=== PATIENT | female | born 1965 | race Caucasian/White ===

== ENCOUNTER 2016-09-16 00:26 | Emergency (ER) | payer OTHER ==
[2016-09-16 00:46] VITALS: BP 118/73
[2016-09-16] MEDS ORDERED: NS 0.9% 1000 ML* 2,000 ML IV ONE (01:07)
[2016-09-16 01:57] LABS: Urine Bacteria Absent (Absent); Urine Bilirubin Negative (Negative); Urine Glucose Negative (Negative); Urine Nitrite Negative (Negative)
--- NOTE | 2016-09-16 02:01 | ED ---
Dalton Carney Adam, scribed for Erich Solis MD on 09/16/16 at 0104 . Back Pain - HPI Summary HPI Summary: Pt is a 51 year old female presenting with left flank pain. It set on at 21:30 and has been constant since then but fluctuating in severity. It radiates to the LLQ. She also reports nausea and diaphoresis. Pt states that the pain resolved upon arrival at the ED so she almost went home but then it returned again. She states that she has vomited 7x since arriving at the ED. At this time the flank pain is mostly resolved. Pt denies any dysuria. Surgical Hx of C- section and partial hysterectomy. No Hx of diverticulitis. - History of Current Complaint Chief Complaint: EDFlankPain Stated Complaint: LT SIDE FLANK/SIDE PAIN Time Seen by Provider: 09/16/16 00:53 Hx Obtained From: Patient Onset/Duration: Sudden Onset, Lasting Hours, Still Present Onset/Duration: Started Hours Ago, Started Days Ago, Atraumatic, Still Present Timing: Constant - Fluctuating in severity, Lasting Hours Back Pain Location: Is Discrete @ - Left flank, Radiates To - LLQ Severity Initially: Mild Severity Currently: Moderate Pain Intensity: 3 Pain Scale Used: 0-10 Numeric Aggravating Symptom(s): Nothing Alleviating Symptom(s): Nothing Associated Signs And Symptoms: Positive: Abdominal Pain, Flank Pain, Other - Nausea, vomiting, diaphoresis - Allergies/Home Medications Allergies/Adverse Reactions: Allergies Allergy/AdvReac Type Severity Reaction Status Date / Time Erythromycin Allergy Hives Verified 12/10/13 16:43 PMH/Surg Hx/FS Hx/Imm Hx Cardiovascular History: Denies: Hx Pacemaker/ICD Sensory History: Denies: Hx Hearing Aid Psychiatric History: Denies: Hx Panic Disorder - Surgical History Surgery Procedure, Year, and Place: HYSTERECTOMY. ADNOIDS Infectious Disease History: No Infectious Disease History: Denies: Traveled Outside the [place] in Last 30 Days - Family History Known Family History: Positive: Other - CVA (grandparent), cancer (mother, grandparents) - Social History Occupation: Employed Full-time Lives: With Family - Alcohol Use: None Hx Substance Use: No Substance Use Type: Reports: None Review of Systems Positive: Skin Diaphoresis Positive: Abdominal Pain, Vomiting, Nausea Positive: flank pain All Other Systems Reviewed And Are Negative: Yes Physical Exam Triage Information Reviewed: Yes Vital Signs On Initial Exam: Initial Vitals Temp Pulse Resp BP Pulse Ox 98.1 F 67 16 118/73 100 09/16/16 00:40 09/16/16 00:40 09/16/16 00:40 09/16/16 00:40 09/16/16 00:40 Vital Signs Reviewed: Yes Appearance: Positive: Well-Appearing, No Pain Distress Skin: Positive: Warm, Skin Color Reflects Adequate Perfusion, Dry Head/Face: Positive: Normal Head/Face Inspection Eyes: Positive: EOMI, SIVAN ENT: Positive: Normal ENT inspection Neck: Positive: Supple, Nontender Respiratory/Lung Sounds: Positive: Clear to Auscultation, Breath Sounds Present Cardiovascular: Positive: RRR Abdomen Description: Positive: Nontender, Soft Bowel Sounds: Positive: Present Musculoskeletal: Positive: Normal, Strength/ROM Intact Neurological: Positive: Normal, Sensory/Motor Intact, Alert, Oriented to Person Place, Time Psychiatric: Positive: Affect/Mood Appropriate Diagnostics - Vital Signs Vital Signs Temp Pulse Resp BP Pulse Ox 09/16/16 00:40 98.1 F 67 16 118/73 100 - Laboratory Lab Statement: Any lab studies that have been ordered have been reviewed, and results considered in the medical decision making process. Back Pain Course/Dx - Course Assessment/Plan: PAIN FREE IN ED. DISCUSSED CT/LABS/UA/IV WITH PATIENT. SHE DECLINED CT BUT, AGREED TO IVF/UA/LABS. PATIENT GAVE URINE AND THEN DECLINED IV/ LABS REMAINS PAIN FREE. DISCHARGE HOME STABLE. - Diagnoses Provider Diagnoses: Abdominal pain Discharge - Discharge Plan Condition: Stable Disposition: HOME Patient Education Materials: Abdominal Pain (ED) Referrals: No Primary Care Phys,NOPCP [Primary Care Provider] - [facility] [Outside] Additional Instructions: FOLLOW UP WITH YOUR DOCTOR. RETURN TO THE EMERGENCY DEPARTMENT FOR ANY WORSENING OF YOUR CONDITION; PAIN, FEVER, YOU FEEL ILL OR QUESTIONS OR CONCERNS. The documentation as recorded by the Dalton paige Adam accurately reflects the service I personally performed and the decisions made by me, Erich Solis MD.
== END 2016-09-16 02:10 | disposition home or self-care (01) ==
LOC: ED 00:26
DX: R10.9 Unspecified abdominal pain (principal)
CPT/HCPCS: 81003; 81015; 99282